=== PATIENT | female | born 1980 | race Two or more races ===

== ENCOUNTER 2020-07-05 11:00 | Inpatient (IN) | payer OTHER ==
[~2020-07-05] VITALS: Ht 162.6 cm; Wt 98.9 kg
== END 2020-07-14 23:14 | disposition home or self-care (01) | DRG 741 ==
LOC: O/R 07-12 05:50 → OB/GYN 07-12 05:50 → SURH 07-12 10:15 → OB/GYN 07-12 15:14
PROVIDERS: ADMIT Obstetrics & Gynecology Gynecologic Oncology; ATTEND Obstetrics & Gynecology Gynecologic Oncology
PROC: 0UBG0ZX Excision of Vagina, Open Approach, Diagnostic (ICD-10-PCS; 2020-07-12)
PROC: 07BC0ZX Excision of Pelvis Lymphatic, Open Approach, Diagnostic (ICD-10-PCS; 2020-07-12)
PROC: 0UT90ZZ Resection of Uterus, Open Approach (ICD-10-PCS; principal; 2020-07-12 10:15)
DX: C53.9 Malignant neoplasm of cervix uteri, unspecified (principal)